=== PATIENT | male | born 1965 | race Caucasian/White ===

== ENCOUNTER 2016-10-03 13:26 | Emergency (ER) | payer OTHER ==
[~2016-10-03] VITALS: Ht 177.8 cm; Wt 125.0 kg
[2016-10-03 13:32] VITALS: TEMP 37.2; Ht 177.8 cm; Wt 125.0 kg
[2016-10-03] MEDS ORDERED: ASPI81TA28 PO (13:56)
[2016-10-03] MEDS ORDERED: METF-384 PO (13:56)
[2016-10-03] MEDS ORDERED: LISI-725 PO (13:56)
[2016-10-03] MEDS ORDERED: GLIP10TA9 PO (13:56)
[2016-10-03] MEDS ORDERED: ALLO300T2 PO (13:56)
[2016-10-03] MEDS ORDERED: MAGN250T8 PO (13:56)
[2016-10-03] MEDS ORDERED: SITA100T3 PO (13:56)
[2016-10-03] MEDS ORDERED: ATEN50TA PO (13:56)
[2016-10-03] MEDS ORDERED: PRAV40TA PO (13:56)
[2016-10-03] MEDS ORDERED: IBUPROFEN 600 MG TAB PO STA (14:12)
[2016-10-03] MEDS ORDERED: MoRPHine SULFATE 4 MG/ML 1 ML CARP\\VIAL IM STA (14:30)
[2016-10-03] MEDS ORDERED: CYCLOBENZAPRINE HCL 10 MG TAB PO STA (14:30)
[2016-10-03] MEDS ORDERED: KETOROLAC TROMETHAMINE 60 MG/2 ML VIAL IM STA (14:30)
--- NOTE | 2016-10-03 15:05 | DIAGNOSTIC IMAGING REPORT ---
CERVICAL SPINE 5 VIEWS CLINICAL HISTORY: Neck pain radiating to the shoulder. FINDINGS: AP, lateral, bilateral oblique, and odontoid views of the cervical spine are obtained. No prior studies are available for comparison at the time of dictation. The skeletal structures are osteopenic. There is no radiographic evidence of fracture or subluxation. The odontoid process and lateral masses appear intact on the open mouth view. The spinolaminar line is preserved. Vertebral body height and alignment are maintained. There is straightening of cervical lordosis. Anterior osteophytes are seen from C3 through C6. The spinous processes appear intact. Mild disc space narrowing is noted at C5-C6 and C6-C7. The remaining intervertebral disc spaces are normal. A tiny posterior disc osteophyte complex at C4-C5 may contribute to minimal acquired compromise of the central canal. Moderate facet arthropathy is observed. There is no evidence of neuroforaminal stenosis on the oblique views. Evaluation of the left is significant degraded by suboptimal positioning. The prevertebral soft tissues are within normal limits. Visualized apical lung parenchyma appears clear. IMPRESSION: 1. No acute bony abnormality seen involving the cervical spine. 2. Minimal degenerative change as above. Electronically signed by: Car Edwards M.D. 10/03/2016 3:04 PM Dictated Date/Time: 10/03/2016 3:02 PM
[2016-10-03] MEDS ORDERED: CYCL10TA6 PO (15:41)
[2016-10-03] MEDS ORDERED: OXYC1TAB3 PO (15:41)
[2016-10-03 16:11] VITALS: BP 132/79; PULSE 77; O2SAT 96
--- NOTE | 2016-10-03 17:23 | EMERGENCY ROOM VISIT NOTE ---
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 The patient reports that many of the boxes/cabinets were heavy. The patient reports immediate onset of left-sided neck pain. He also reports a mild posterior headache behind his left ear and scalp. He denies any right-sided or central neck pain. He denies any pain extending into the upper back or chest. The pain is worsened with movement of his neck, and in fact reports that he cannot move his neck to look at his rearview mirrors because of stiffness and pain. The patient denies any prior history of neck injuries or chronic neck pain. He rates his discomfort an 8 out of 10. Review of Systems 10 system review was performed and was negative except for pertinent positives and negatives as indicated in history of present illness Past Medical/Surgical History Medical Problems: (1) Diabetes (2) Hypertension (3) Kidney stones Family History FH: cancer FH: diabetes mellitus FH: hypertension FH: kidney disease Social History Smoking Status: Never Smoker Smokeless Tobacco Use: Yes Alcohol Use: none Drug Use: none Marital Status: single Housing Status: lives alone Occupation Status: employed Current/Historical Medications Scheduled Allopurinol (Zyloprim), 300 MG PO BID Aspirin (Aspirin Ec), 81 MG PO DAILY Atenolol (Tenormin), 50 MG PO QPM Cyclobenzaprine Hcl (Flexeril), 10 MG PO TID Glipizide (Glucotrol), 15 MG PO TIDM Lisinopril (Zestril), 20 MG PO BIDM Magnesium Oxide (Mg Supplement (Magnesium), 250 MG PO QAM Metformin Hcl (Glucophage), 1,000 MG PO BID Pravastatin Sodium (Pravachol), 80 MG PO QPM Sitagliptin Phosphate (Januvia), 100 MG PO QPM Scheduled PRN Oxycodone Ir (Roxicodone Ir), 1-2 TAB PO Q4H PRN for Pain Physical Exam Vital Signs Date Time Temp Pulse Resp B/P (MAP) Pulse Ox O2 Delivery O2 Flow Rate FiO2 10/03/16 16:11 77 18 132/79 96 10/03/16 13:32 37.2 89 20 142/81 97 Room Air Physical Exam CONSTITUTIONAL: Healthy and well nourished. Alert and oriented X 3 with positive affect. Patient appears in moderate discomfort from pain, finding it difficult to move his head and neck without discomfort. HEENT: Normocephalic, atraumatic. Pupils equal, round and reactive. Ears and nares are clear. No scleral icterus or conjunctival injection. NECK: Examination shows diffuse tenderness to palpation and rigidity of the left upper trapezius and paraspinous muscle. He also has tenderness at the left skull base. RESPIRATORY: Clear to auscultation bilaterally with no wheezing, crackles, rhonchi or stridor. CARDIOVASCULAR: Regular rate and rhythm with no murmurs, rubs or gallops. MUSCULOSKELETAL: Patient has no other tenderness to palpation through the interscapular region or central thoracolumbar spine. Range of motion of the shoulders does not cause any significant discomfort. Distal pulses are intact. INTEGUMENTARY: No rash or other significant dermatologic conditions noted. NEUROLOGIC: Upper extremities are sensory intact. Medical Decision & Procedures ER Provider Diagnostic Interpretation: My interpretation of cervical spine x-ray shows degenerative changes, otherwise no acute fractures noted. Radiologist report is as follows: CERVICAL SPINE 5 VIEWS CLINICAL HISTORY: Neck pain radiating to the shoulder. FINDINGS: AP, lateral, bilateral oblique, and odontoid views of the cervical spine are obtained. No prior studies are available for comparison at the time of dictation. The skeletal structures are osteopenic. There is no radiographic evidence of fracture or subluxation. The odontoid process and lateral masses appear intact on the open mouth view. The spinolaminar line is preserved. Vertebral body height and alignment are maintained. There is straightening of cervical lordosis. Anterior osteophytes are seen from C3 through C6. The spinous processes appear intact. Mild disc space narrowing is noted at C5-C6 and C6-C7. The remaining intervertebral disc spaces are normal. A tiny posterior disc osteophyte complex at C4-C5 may contribute to minimal acquired compromise of the central canal. Moderate facet arthropathy is observed. There is no evidence of neuroforaminal stenosis on the oblique views. Evaluation of the left is significant degraded by suboptimal positioning. The prevertebral soft tissues are within normal limits. Visualized apical lung parenchyma appears clear. IMPRESSION: 1. No acute bony abnormality seen involving the cervical spine. 2. Minimal degenerative change as above. Medications Administered Medications (Trade) Dose Ordered Sig/[place] Route Start Time Stop Time Status Last Admin Dose Admin Ketorolac Tromethamine (Toradol Inj) 60 mg NOW STAT IM 10/03/16 14:30 10/03/16 14:33 DC 10/03/16 15:07 60 MG Morphine Sulfate (MoRPHine SULFATE INJ) 4 mg NOW STAT IM 10/03/16 14:30 10/03/16 14:33 DC 10/03/16 15:07 4 MG Cyclobenzaprine HCl (Flexeril Tab) 10 mg NOW STAT PO 10/03/16 14:30 10/03/16 14:33 DC 10/03/16 15:06 10 MG ED Course Patient history and physical exam were performed. Nurse's notes were reviewed. Vital signs were reviewed and normal. The patient was administered IM Toradol and morphine for his pain. He was also administered Flexeril 10 mg orally. Cervical spine x-rays does not show any acute findings. The patient reports that his pain was reduced to a 5 out of 10, and felt well enough for discharge. The patient is concerned about his ability to drive as he was supposed to head [place] back to [facility]. I did explain the side effects of muscle relaxers and analgesics, and suggested that he either only take ibuprofen and Tylenol in alternating fashion for pain, or find a hotel to stay overnight. The patient reports that he cannot turn his neck to look at them ears, and has elected to find a local hotel for the night. The patient was provided prescriptions as well for OxyIR and Flexeril. He was welcomed to return to the emergency department as needed for intractable or worsening pain. Otherwise he was instructed to follow-up with his Worker's Compensation physician upon return home for further reevaluation if his pain persists. Additional instructions for symptomatic relief were also provided. The patient was happy with plan of care, and voiced understanding of all discharge instructions. Medical Decision Medication Reconcilliation Current Medication List: was personally reviewed by me Blood Pressure Screening Patient's blood pressure: Normal blood pressure Impression Primary Impression: Cervical strain, acute Additional Impression: Work related injury Departure Information Prescriptions Oxycodone Ir (Roxicodone Ir) 5 Mg Tab 1-2 TAB PO Q4H Y for Pain, #15 TAB For Initial Treatment Prov: Eliseo Cintron PA 10/03/16 Cyclobenzaprine Hcl (FLEXERIL) 10 Mg Tab 10 MG PO TID for spasm, #15 TAB Prov: Eliseo Cintron PA 10/03/16 Referrals No Doctor, Assigned (PCP) Patient Instructions My [facility] Problem Qualifiers
== END 2016-10-03 16:13 | disposition home or self-care (01) ==
LOC: C.EDB 13:28 → C.EDD 16:13
DX: S16.1XXA Strain of muscle, fascia and tendon at neck level, initial encounter (principal); Y92.89 Other specified places as the place of occurrence of the external cause; Y99.0 Civilian activity done for income or pay; I10 Essential (primary) hypertension; E11.9 Type 2 diabetes mellitus without complications; Z87.442 Personal history of urinary calculi; Z79.82 Long term (current) use of aspirin; Z79.4 Long term (current) use of insulin; Z79.899 Other long term (current) drug therapy; Z80.9 Family history of malignant neoplasm, unspecified; Z83.3 Family history of diabetes mellitus; Z82.49 Family history of ischemic heart disease and other diseases of the circulatory system; Z84.1 Family history of disorders of kidney and ureter